=== PATIENT | female | born 1970 | race Caucasian/White ===

== ENCOUNTER → 2024-10-28 | Outpatient (CLI) | payer BC, SELFPAY ==
[2024-10-29 00:15] LABS: ALB/GLOB Ratio 1.3 RATIO (0.9-2.4); AST(SGOT) 38 U/L (<=31); Alanine Aminotransfer ALT/SGPT 49 U/L (<=34); Albumin, Serum 4.3 g/dL (3.5-5.0); Alkaline Phosphatase 72 U/L (35-104); Anion Gap 12 (5-15); BUN 14 mg/dL (4-19); BUN/Creat Ratio 18.3 RATIO (10-20); Calcium,Total 9.9 mg/dL (7.6-11.0); Carbon Dioxide 23.6 mmol/L (21.0-32.0); Chloride 103 mmol/L (98-108); Creatinine, Serum 0.75 mg/dL (0.70-1.20); EST Glomerular Filtration Rate 95 (>60); Globulin 3.3 g/dL (2.2-4.2); Glucose 108 mg/dL (70-99); Potassium 4.9 mmol/L (3.3-5.1); Protein, Total 7.5 g/dL (5.9-8.4); Sodium Level 138 mmol/L (133-145); Total Bilirubin 0.24 mg/dL (0.00-1.30)
[2024-10-29 01:16] LABS: CRP 6.04 mg/L (0.0-3.0); Iron 57 ug/dL (50-170)
[2024-10-29 01:17] LABS: Estradiol < 5.0 pg/mL; Ferritin 27 ng/mL (22-378)
[2024-10-30 14:08] LABS: PROGESTERONE 0.1 ng/mL (.)
[2024-10-30 17:07] LABS: DHEA Sulfate 50.9 ug/dL (41.2-243.7); Thyroglobulin Antibody 3.2 IU/mL (0.0-0.9); Thyroid Peroxidase AB 23 IU/mL (0-34)
== END | disposition home or self-care (01) ==
LOC: LABSPEC 12:35
PROVIDERS: Referring Provider Nurse Practitioner Family; Visit Provider Nurse Practitioner Family
DX: E28.9 Ovarian dysfunction, unspecified (principal); L65.9 Nonscarring hair loss, unspecified; R53.83 Other fatigue; F41.9 Anxiety disorder, unspecified; R63.5 Abnormal weight gain; R61 Generalized hyperhidrosis; R19.7 Diarrhea, unspecified; R35.1 Nocturia; E61.1 Iron deficiency; E55.9 Vitamin D deficiency, unspecified; E53.9 Vitamin B deficiency, unspecified
CPT/HCPCS: 80053; 82627; 82670; 82728; 83540; 84144; 84403; 84439; 84443; 84481; 86140; 86376; 86800; 82626

== ENCOUNTER 2025-07-11 12:20 | Outpatient (CLI) | payer BC, SELFPAY ==
--- OUTSIDE RECORDS SUMMARY | 2025-07-11 12:46 | XMS RPT_ITS | CCD ---
Author Organization [facility] Care Team Providers Care Herb Grower Name Role Phone SUMMER REY, MAIK Everett Attending Trevor WHEELER MD, MAIK Everett Primary Care Unavailable SUMMER REY, MAIK Everett Attending Unavailable SUMMER REY, MAIK Everett Primary Care Unavailable Benedict FAMILY WORKER, Macey Figueroa Referring Unavailprabhakar e Benedict FAMILY WORKER, Macey Figueroa Attending Unavailabl e Benedict FAMILY WORKER-C, Macey Figueroa Attending Provider Unava ilable Bneedict FAMILY WORKER-C, Macey Figueroa Referring Provider Unava ilable Problems Problem Classification Problem Date Documented Da te Episodic/Chronic Deficiency and other anemia (2 sources) Vitamin B12 deficiency anemia, unspecified; Translations: [Vitamin B12 deficiency anemia, unspecified] Onset: 06-17-2022 Episodic Nutritional deficiencies (2 sources) Vitamin D deficiency, unspecified; Translations: [Vitamin D deficiency, unspecified] Onset: 06-17-2022 Chronic Other endocrine disorders (1 source) Ovarian dysfunction, unspecified; Translations: [Ovarian dysfunction, unspecified] Onset: 11-02-2024 Chronic Results Test Name Value Interpretation Reference Range Facility DHEA Sulfateon 10-30-2024 DHEA SULFATE 50.9 ug/dL Normal 41.2-243.7 [facility] Comment on above: Order Comment: N Performed By: #### L 100.0100, L501.9520, L3300.1500, L501.6710, L509.3000, L503.6150, L801.2600, L501.01592, L506.0400, L500.4050, L3300.1750, L3300.6750, L503.6550 #### [facility] [address] [place], [place], [id number] PROGESTERONE 4317on 10-31-19 25 PROGESTERONE 0.1 ng/mL Normal . [facility] Comment on above: Order Comment: N Result Comment: Foll icular phase 0.1 - 0.9 Luteal phase 1.8 - 23.9 Ovulation phase 0.1 - 12.0 First trimester 11.0 - 44.3 Second trimester 25.4 - 83.3 Third trimester 58.7 - 214.0 Postmenopausal 0.0 - 0.1 Performed at: [address] [id number] Cont[employer] Sales Representative: Anoop Barreto PhD, Phone: [phone] Performed By: #### L 100.0100, L501.9520, L3300.1500, L501.6710, L509.3000, L503.6150, L801.2600, L501.21076, L506.0400, L500.4050, L3300.1750, L3300.6750, L503.6550 #### [facility] [address] [place], [address] Thyroid Antibodieson 025 TG AB 3.2 IU/mL High 0.0-0.9 [facility] Comment on above: Result Comment: Thyr oglobulin Antibody measured by Sacha Ty Methodology It should be noted that the presence of thyroglobulin antibodies may not be pathogenic nor diagnostic, especially at very low levels. The assay detailer school photographs has found that four percent of individuals without evidence of thyroid disease or autoimmunity will have positive TgAb levels up to 4 IU/mL. Performed at: [address] [id number] Cont[employer] Sales Representative: Anoop Barreto PhD, Phone: [phone] Performed By: #### L 100.0100, L501.9520, L3300.1500, L501.6710, L509.3000, L503.6150, L801.2600, L501.42174, L506.0400, L500.4050, L3300.1750, L3300.6750, L503.6550 #### [facility] [address] [place], [address] THYR PEROX AB 23 IU/mL Normal 0-34 [facility] Comment on above: Performed By: #### L 100.0100, L501.9520, L3300.1500, L501.6710, L509.3000, L503.6150, L801.2600, L501.43252, L506.0400, L500.4050, L3300.1750, L3300.6750, L503.6550 #### [facility] [address] [place], [place], [id number] CRPon 10-29-2024 C-REACTIVE PROT 6.04 mg/L High 0.0-3.0 [facility] Comment on above: Performed By: #### L 100.0100, L501.9520, L3300.1500, L501.6710, L509.3000, L503.6150, L801.2600, L501.56092, L506.0400, L500.4050, L3300.1750, L3300.6750, L503.6550 #### [facility] [address] [place], [address] Comprehensive Metabolic Prof ilon 10-29-2024 Albumin [Mass/Vol] 4.3 g/dL Normal 3.5-5.0 [facility] Comment on above: Performed By: #### L 100.0100, L501.9520, L3300.1500, L501.6710, L509.3000, L503.6150, L801.2600, L501.63381, L506.0400, L500.4050, L3300.1750, L3300.6750, L503.6550 #### [facility] [address] [place], [address] Albumin/Globulin [Mass ratio] 1.3 {ratio} Normal 0.9-2.4 [facility] Comment on above: Performed By: #### L 100.0100, L501.9520, L3300.1500, L501.6710, L509.3000, L503.6150, L801.2600, L501.95803, L506.0400, L500.4050, L3300.1750, L3300.6750, L503.6550 #### [facility] [address] [place], [place], [id number] ALK PHOS 72 U/L Normal 35-104 [facility] Comment on above: Performed By: #### L 100.0100, L501.9520, L3300.1500, L501.6710, L509.3000, L503.6150, L801.2600, L501.04430, L506.0400, L500.4050, L3300.1750, L3300.6750, L503.6550 #### [facility] [address] [place], [place], [phone] (848) ALT [Catalytic activity/Vol] 49 U/L High <=34 [facility] Comment on above: Performed By: #### L 100.0100, L501.9520, L3300.1500, L501.6710, L509.3000, L503.6150, L801.2600, L501.20234, L506.0400, L500.4050, L3300.1750, L3300.6750, L503.6550 #### [facility] [address] [place], [place], [phone] (813) AST [Catalytic activity/Vol] 38 U/L High <=31 [facility] Comment on above: Performed By: #### L 100.0100, L501.9520, L3300.1500, L501.6710, L509.3000, L503.6150, L801.2600, L501.61678, L506.0400, L500.4050, L3300.1750, L3300.6750, L503.6550 #### [facility] [address] [place], [place], [id number] Bilirubin [Mass/Vol] 0.24 mg/dL Normal 0.00-1.30 [facility] Comment on above: Performed By: #### L 100.0100, L501.9520, L3300.1500, L501.6710, L509.3000, L503.6150, L801.2600, L501.10956, L506.0400, L500.4050, L3300.1750, L3300.6750, L503.6550 #### [facility] [address] [place], [address] BUN/CRE 18.3 RATIO Normal 10-20 [facility] Comment on above: Performed By: #### L 100.0100, L501.9520, L3300.1500, L501.6710, L509.3000, L503.6150, L801.2600, L501.50455, L506.0400, L500.4050, L3300.1750, L3300.6750, L503.6550 #### [facility] [address] [place], [place], [id number] Calcium [Mass/Vol] 9.9 mg/dL Normal 7.6-11.0 [facility] Comment on above: Performed By: #### L 100.0100, L501.9520, L3300.1500, L501.6710, L509.3000, L503.6150, L801.2600, L501.58445, L506.0400, L500.4050, L3300.1750, L3300.6750, L503.6550 #### [facility] [address] [place], [place], [phone] Chloride [Moles/Vol] 103 mmol/L Normal 98-108 [facility] Comment on above: Performed By: #### L 100.0100, L501.9520, L3300.1500, L501.6710, L509.3000, L503.6150, L801.2600, L501.79042, L506.0400, L500.4050, L3300.1750, L3300.6750, L503.6550 #### [facility] [address] [place], [address] (050) CO2 [Moles/Vol] 23.6 mmol/L Normal 21.0-32.0 [facility] Comment on above: Performed By: #### L 100.0100, L501.9520, L3300.1500, L501.6710, L509.3000, L503.6150, L801.2600, L501.19209, L506.0400, L500.4050, L3300.1750, L3300.6750, L503.6550 #### [facility] [address] [place], [address] (807) Creatinine [Mass/Vol] 0.75 mg/dL Normal 0.70-1.20 [facility] Comment on above: Performed By: #### L 100.0100, L501.9520, L3300.1500, L501.6710, L509.3000, L503.6150, L801.2600, L501.78247, L506.0400, L500.4050, L3300.1750, L3300.6750, L503.6550 #### [facility] [address] [place], [address] (340) GAP 12 Normal 5-15 [facility] Comment on above: Performed By: #### L 100.0100, L501.9520, L3300.1500, L501.6710, L509.3000, L503.6150, L801.2600, L501.22788, L506.0400, L500.4050, L3300.1750, L3300.6750, L503.6550 #### [facility] [address] [place], [address] (687) GFR/1.73 sq M.predicted among non-blacks MDRD (S/P/Bld) [Vol rate/Area] 95 mL/min/{1.73_m2} Normal >60 [facility] Comment on above: Result Comment: mL/m in/1.73m2 CKD-EPI Creatinine Equation (2020) Performed By: #### L 100.0100, L501.9520, L3300.1500, L501.6710, L509.3000, L503.6150, L801.2600, L501.88856, L506.0400, L500.4050, L3300.1750, L3300.6750, L503.6550 #### [facility] [address] [place], [address] Globulin (S) [Mass/Vol] 3.3 g/dL Normal 2.2-4.2 [facility] Comment on above: Performed By: #### L 100.0100, L501.9520, L3300.1500, L501.6710, L509.3000, L503.6150, L801.2600, L501.18347, L506.0400, L500.4050, L3300.1750, L3300.6750, L503.6550 #### [facility] [address] [place], [address] Glucose [Mass/Vol] 108 mg/dL High 70-99 [facility] Comment on above: Performed By: #### L 100.0100, L501.9520, L3300.1500, L501.6710, L509.3000, L503.6150, L801.2600, L501.51098, L506.0400, L500.4050, L3300.1750, L3300.6750, L503.6550 #### [facility] [address] [place], [address] Potassium [Moles/Vol] 4.9 mmol/L Normal 3.3-5.1 [facility] Comment on above: Performed By: #### L 100.0100, L501.9520, L3300.1500, L501.6710, L509.3000, L503.6150, L801.2600, L501.81893, L506.0400, L500.4050, L3300.1750, L3300.6750, L503.6550 #### [facility] [address] [place], [address] Sodium [Moles/Vol] 138 mmol/L Normal 133-145 [facility] Comment on above: Performed By: #### L 100.0100, L501.9520, L3300.1500, L501.6710, L509.3000, L503.6150, L801.2600, L501.64671, L506.0400, L500.4050, L3300.1750, L3300.6750, L503.6550 #### [facility] [address] [place], [place], [phone] (338) T PROT 7.5 g/dL Normal 5.9-8.4 [facility] Comment on above: Performed By: #### L 100.0100, L501.9520, L3300.1500, L501.6710, L509.3000, L503.6150, L801.2600, L501.45813, L506.0400, L500.4050, L3300.1750, L3300.6750, L503.6550 #### [facility] [address] [place], [place], [phone] (682) Urea nitrogen [Mass/Vol] 14 mg/dL Normal 4-19 [facility] Comment on above: Performed By: #### L 100.0100, L501.9520, L3300.1500, L501.6710, L509.3000, L503.6150, L801.2600, L501.44004, L506.0400, L500.4050, L3300.1750, L3300.6750, L503.6550 #### [facility] [address] [place], [place], [phone] (318) Estradiolon 03-25-2025 ESTRADIOL < 5.0 Normal [facility] Comment on above: Result Comment: FEMA LES ADULT FEMALE: Premenopausal: 15-350 pg/mL(E2 levels vary widely through the menstrual cycle) Postmenopausal: <10 pg/mL JAROD STAGES MEAN AGE REFERENCE RANGES Stage I(>14 days and prepubertal) 7.1 years Undetectable-20 pg/mLL Stage II 10.5 years Undetectable-24 pg/mL Stage III 11.6 years Undetectable-60 pg/mL Stage IV 12.3 years 15-85 pg/mL Stage V 14.5 years 15-350 pg/mL Puberty onset (transition from Jarod stage I to Jarod stage II) occurs for girls at a median age of 10.5 (/- 2) years. There is evidence that it may occur up to 1 year earlier in obese girls and in girls. Progression through Jarod stages is variable. Jarod stage V (adult) should be reached by age 18. Performed By: #### L 100.0100, L501.9520, L3300.1500, L501.6710, L509.3000, L503.6150, L801.2600, L501.55266, L506.0400, L500.4050, L3300.1750, L3300.6750, L503.6550 #### [facility] [address] [place], [place], [id number] Ferritinon 10-29-2024 Ferritin [Mass/Vol] 27 ng/mL Normal 22-378 [facility] Comment on above: Performed By: #### L 100.0100, L501.9520, L3300.1500, L501.6710, L509.3000, L503.6150, L801.2600, L501.08935, L506.0400, L500.4050, L3300.1750, L3300.6750, L503.6550 #### [facility] [address] [place], [address] ( Free T3on 10-29-2024 Free T3 [Mass/Vol] 3.0 pg/mL Normal 2.18-3.98 [facility] Comment on above: Order Comment: N Performed By: #### L 100.0100, L501.9520, L3300.1500, L501.6710, L509.3000, L503.6150, L801.2600, L501.12126, L506.0400, L500.4050, L3300.1750, L3300.6750, L503.6550 #### [facility] [address] [place], [place], [id number] Ironon 10-29-2024 Iron [Mass/Vol] 57 ug/dL Normal 50-170 [facility] Comment on above: Performed By: #### L 100.0100, L501.9520, L3300.1500, L501.6710, L509.3000, L503.6150, L801.2600, L501.63807, L506.0400, L500.4050, L3300.1750, L3300.6750, L503.6550 #### [facility] [address], [address] T4 Free Directon 10-29-2024 T4 FREE DIRECT 1.20 ng/dL Normal 0.76-1.46 [facility] Comment on above: Order Comment: N Performed By: #### L 100.0100, L501.9520, L3300.1500, L501.6710, L509.3000, L503.6150, L801.2600, L501.69502, L506.0400, L500.4050, L3300.1750, L3300.6750, L503.6550 #### [facility] [address] [place], [address] Testosterone, Serum Totalon 10-29-2024 Testosterone [Mass/Vol] 7.33 ng/dL Normal W [facility] Comment on above: Result Comment: CENT RAL 90% REFERENCE RANGES MALE AGE <50 197.44 - 669.58 ng/dL MALE AGE > or = 50 187.72 - 684.19 ng/dL FEMALE AGE <50 8.38 - 35.01 ng/dL FEMALE AGE > or = 50 <7.00 - 35.92 ng/dL Effective as of 03/02/21 Performed By: #### L 100.0100, L501.9520, L3300.1500, L501.6710, L509.3000, L503.6150, L801.2600, L501.28791, L506.0400, L500.4050, L3300.1750, L3300.6750, L503.6550 #### [facility] [address] [place], [place], [id number] Thyroid Stim Hormone (TSH)on 10-29-2024 TSH 2.440 uIU/mL Normal 0.300-4.20 0 [facility] Comment on above: Performed By: #### L 100.0100, L501.9520, L3300.1500, L501.6710, L509.3000, L503.6150, L801.2600, L501.65550, L506.0400, L500.4050, L3300.1750, L3300.6750, L503.6550 #### [facility] [address] [place], [place], [phone] Anion gap in Serum or Plasma Ordered By: Macey Mcmullen on 10-28-2024 Anion gap [Moles/Vol] 12 mmol/L 5- [facility] BUN/creatinine ratioOrdered By: Macey Mcmullen on 10-28-2024 Urea nitrogen/Creatinine [Mass ratio] 18.3 mg/mg 10-20 [facility] Bilirubin, totalOrdered By: Macey Mcmullen on 10-28-2024 Bilirubin [Mass/Vol] 0.24 mg/dL 0.00-1.30 [facility] CBC W/Diff, Automatedon 10-06 Absolute Neut Normal 2.0-7.7 [facility] Comment on above: Result Comment: @LEF T MESSAGE FOR RETURN CALL 10-28-24 1510 ps Performed By: #### L 100.0100, L501.9520, L3300.1500, L501.6710, L509.3000, L503.6150, L801.2600, L501.20007, L506.0400, L500.4050, L3300.1750, L3300.6750, L503.6550 #### [facility] [address] [place], [place], [id number] HCT Normal 37-47 [facility] Comment on above: Result Comment: @LEF T MESSAGE FOR RETURN CALL 10-28-24 1510 ps Performed By: #### L 100.0100, L501.9520, L3300.1500, L501.6710, L509.3000, L503.6150, L801.2600, L501.93115, L506.0400, L500.4050, L3300.1750, L3300.6750, L503.6550 #### [facility] [address] [place], [address] HGB Normal 12.0-15.0 [facility] Comment on above: Result Comment: @LEF T MESSAGE FOR RETURN CALL 10-28-24 1510 ps Performed By: #### L 100.0100, L501.9520, L3300.1500, L501.6710, L509.3000, L503.6150, L801.2600, L501.42495, L506.0400, L500.4050, L3300.1750, L3300.6750, L503.6550 #### [facility] [address] [place], [address] MCH Normal 27.0-32.0 [facility] Comment on above: Result Comment: @LEF T MESSAGE FOR RETURN CALL 10-28-24 1510 ps Performed By: #### L 100.0100, L501.9520, L3300.1500, L501.6710, L509.3000, L503.6150, L801.2600, L501.59214, L506.0400, L500.4050, L3300.1750, L3300.6750, L503.6550 #### [facility] [address] [place], [address] MCHC Normal 32-36 [facility] Comment on above: Result Comment: @LEF T MESSAGE FOR RETURN CALL 10-28-24 1510 ps Performed By: #### L 100.0100, L501.9520, L3300.1500, L501.6710, L509.3000, L503.6150, L801.2600, L501.65706, L506.0400, L500.4050, L3300.1750, L3300.6750, L503.6550 #### [facility] [address] [place], [address] MCV Normal 81-99 [facility] Comment on above: Result Comment: @LEF T MESSAGE FOR RETURN CALL 10-28-24 1510 ps Performed By: #### L 100.0100, L501.9520, L3300.1500, L501.6710, L509.3000, L503.6150, L801.2600, L501.64281, L506.0400, L500.4050, L3300.1750, L3300.6750, L503.6550 #### [facility] [address] [place], [address] NEUT% Normal 47-70 [facility] Comment on above: Result Comment: @LEF T MESSAGE FOR RETURN CALL 10-28-24 1510 ps Performed By: #### L 100.0100, L501.9520, L3300.1500, L501.6710, L509.3000, L503.6150, L801.2600, L501.84690, L506.0400, L500.4050, L3300.1750, L3300.6750, L503.6550 #### [facility] [address] [place], [address] PLT Normal 150-450 [facility] Comment on above: Result Comment: @LEF T MESSAGE FOR RETURN CALL 10-28-24 1510 ps Performed By: #### L 100.0100, L501.9520, L3300.1500, L501.6710, L509.3000, L503.6150, L801.2600, L501.15171, L506.0400, L500.4050, L3300.1750, L3300.6750, L503.6550 #### [facility] [address] [place], [place], [phone] (834) RBC Normal 4.2-5.4 [facility] Comment on above: Result Comment: @LEF T MESSAGE FOR RETURN CALL 10-28-24 1510 ps Performed By: #### L 100.0100, L501.9520, L3300.1500, L501.6710, L509.3000, L503.6150, L801.2600, L501.46142, L506.0400, L500.4050, L3300.1750, L3300.6750, L503.6550 #### [facility] [address] [place], [address] RDW CV Normal 11.6-14.6 [facility] Comment on above: Result Comment: @LEF T MESSAGE FOR RETURN CALL 10-28-24 1510 ps Performed By: #### L 100.0100, L501.9520, L3300.1500, L501.6710, L509.3000, L503.6150, L801.2600, L501.02176, L506.0400, L500.4050, L3300.1750, L3300.6750, L503.6550 #### [facility] [address] [place], [place], [phone] (792) RDW SD Normal 35.1-43.9 [facility] Comment on above: Result Comment: @LEF T MESSAGE FOR RETURN CALL 10-28-24 1510 ps Performed By: #### L 100.0100, L501.9520, L3300.1500, L501.6710, L509.3000, L503.6150, L801.2600, L501.08116, L506.0400, L500.4050, L3300.1750, L3300.6750, L503.6550 #### [facility] [address] [place], [address] WBC Normal 4.4-11.0 [facility] Comment on above: Result Comment: @[facility] T MESSAGE FOR RETURN CALL 10-28-24 1510 ps Performed By: #### L 100.0100, L501.9520, L3300.1500, L501.6710, L509.3000, L503.6150, L801.2600, L501.83251, L506.0400, L500.4050, L3300.1750, L3300.6750, L503.6550 #### [facility] [address] [place], [place], [id number] CRP [Mass/Vol]Ordered By: Johnny Mcmullen on 10-28-2024 C-Reactive Protein Extended Range 6.04 mg/L High 0.0-3.0 [facility] Carbon dioxide, total [Moles /volume] in Central venous bloodOrdered By: Macey Mcmullen on 10-28-2024 CO2 [Moles/Vol] 23.6 mmol/L 21.0-32.0 [facility] Chloride assayOrdered By: Johnny Mcmullen on 10-28-2024 Chloride [Moles/Vol] 103 mmol/L 98-108 [facility] Dehydroepiandrosterone sulfa te (DHEA-S) measurementOrdered By: Macey Mcmullen on 10-28-2024 Dehydroepiandrosterone Sulfate 50.9 ug/dL 41.2-243.7 [facility] E2 post dose follitropin [Ma ss/Vol]Ordered By: Macey Mcmullen on 10-28-2024 Estradiol (E2) Level < 5.0 pg/mL [facility] Comment on above: FEMALES ADULT FEMALE : Premenopausal: 15-350 pg/mL(E2 levels vary widely through the menstrual cycle) Postmenopausal: <10 pg/mL JAROD STAGES MEAN AGE REFERENCE RANGES Stage I(>14 days and prepubertal) 7.1 years Undetectable-20 pg/mLL Stage II 10.5 years Undetectable-24 pg/mL Stage III 11.6 years Undetectable-60 pg/mL Stage IV 12.3 years 15-85 pg/mL Stage V 14.5 years 15-350 pg/mL Puberty onset (transition from Jarod stage I to Jarod stage II) occurs for girls at a median age of 10.5 (/- 2) years. There is evidence that it may occur up to 1 year earlier in obese girls and in girls.Progression through Jarod stages is variable. Jarod stage V (adult) should be reached by age 18. Free S7Aiazmeo By: Macey clement on 10-28-2024 Free Triiodothyronine (T3) pg/dL 3.0 pg/mL 2.18-3.98 [facility] GFR/1.73 sq M.predicted maria m g non-blacks MDRD (S/P/Bld) [Vol rate/Area]Ordered By: Macey Mcmullen on 10-28-2024 Estimated GFR (MDRD) Non-Af Amer 95 >60 [facility] Comment on above: mL/min/1.73m2 CKD-EP I Creatinine Equation (2020) Iron (Unsp spec) [Mass/Mass] Ordered By: Macey Mcmullen on 10-28-2024 Iron [Mass/Vol] 57 ug/dL 50-170 [facility] Laboratory - Chemistry and C hemistry - challengeOrdered By: Macey Mcmullen on 10-28-2024 AST [Catalytic activity/Vol] 38 U/L High <32 [facility] Potassium (Unsp spec) [Mass/ Vol]Ordered By: Macey Mcmullen on 10-28-2024 Potassium [Moles/Vol] 4.9 mmol/L 3.3-5.1 [facility] Quantitative serum progester one measurement by electrochemiluminescence immunoassay (Ordered By: Macey Mcmullen on 10-28-2024 Progesterone Level 0.1 ng/mL . [facility] Comment on above: Follicular phase 0.1 - 0.9 Luteal phase 1.8 - 23.9 Ovulation phase 0.1 - 12.0 First trimester 11.0 - 44.3 Second trimester 25.4 - 83.3 Third trimester 58.7 - 214.0 Postmenopausal 0.0 - 0.1Performed at: [facility] [address] [id number] Director: Anoop Barreto PhD, Phone: [phone] Serum creatinine measurement (mass/volume)Ordered By: Macey Mcmullen on 10-28-2024 Creatinine [Mass/Vol] 0.75 mg/dL 0.70-1.20 [facility] Serum globulin measurementOr dered By: Macey Mcmullen on 10-28-2024 Globulin (S) [Mass/Vol] 3.3 g/dL 2.2-4.2 [facility] Serum glucose measurement (m ass/volume)Ordered By: Macey Mcmullen on 10-28-2024 Glucose [Mass/Vol] 108 mg/dL High 70-99 [facility] Serum or plasma alanine bingham otransferase (ALT) measurementOrdered By: Macey Mcmullen on 10-28-2024 ALT [Catalytic activity/Vol] 49 U/L High <35 [facility] Serum or plasma albumin erika urement (mass/volume)Ordered By: Macey Mcmullen on 10-28-2024 Albumin [Mass/Vol] 4.3 g/dL 3.5-5.0 [facility] Serum or plasma albumin/glob ulin mass ratioOrdered By: Macey Mcmullen on 10-28-2024 Albumin/Globulin [Mass ratio] 1.3 {ratio} 0.9-2.4 [facility] Serum or plasma alkaline manjeet sphatase measurementOrdered By: Macey Mcmullen on 10-28-2024 ALP [Catalytic activity/Vol] 72 U/L 35-104 [facility] Serum or plasma calcium erika urement (mass/volume)Ordered By: Macey Mcmullen on 10-28-2024 Calcium [Mass/Vol] 9.9 mg/dL 7.6-11.0 [facility] Serum or plasma ferritin demond surement (mass/volume)Ordered By: Macey Mcmullen on 10-28-2024 Ferritin [Mass/Vol] 27 ng/mL 22-378 [facility] Serum or plasma urea nitroge n measurement (mass/volume)Ordered By: Macey Mcmullen on 10-28-2024 Urea nitrogen [Mass/Vol] 14 mg/dL 4-19 [facility] Sodium levelOrdered By: Pancho Mcmullen on 10-28-2024 Sodium [Moles/Vol] 138 mmol/L 133-145 [facility] T4 freeOrdered By: Macey clement on 10-28-2024 Free T4 [Mass/Vol] 1.20 ng/dL 0.76-1.46 [facility] TPO Ab QnOrdered By: Macey Mcmullen on 10-28-2024 Thyroid Peroxidase Antibodies 23 IU/mL 0-34 [facility] TSH DL <= 0.005 mIU/L QnOrde red By: Macey Mcmullen on 10-28-2024 Thyroid Stimulating Hormone (TSH) 2.440 uIU/mL 0.300-4.20 0 [facility] Testosterone, totalOrdered B y: Macey Mcmullen on 10-28-2024 Testosterone [Mass/Vol] 7.33 ng/dL W [facility] Comment on above: CENTRAL 90% REFERENC E RANGES MALE AGE <50 197.44 - 669.58 ng/dL MALE AGE > or = 50 187.72 - 684.19 ng/dL FEMALE AGE <50 8.38 - 35.01 ng/dL FEMALE AGE > or = 50 <7.00 - 35.92 ng/dL Effective as of 03/02/21 Thyroglobulin Ab serumOrdere d By: Macey Mcmullen on 10-28-2024 Thyroglobulin Antibody 3.2 IU/mL High 0.0-0.9 [facility] Comment on above: Thyroglobulin Antibo dy measured by [employer]imet[employer] CoulterMethodologyIt should be noted that the presence of thyroglobulinantibodies may not be pathogenic nor diagnostic, especiallyat very low levels. The assay detailer school photographs has found thatfour percent of individuals without evidence of thyroiddisease or autoimmunity will have positive TgAb levels upto 4 IU/mL.Performed at: [address] [id number] Director: Anoop Barreto PhD, Phone: [phone] Total proteinOrdered By: Luly Mcmullen on 10-28-2024 Protein [Mass/Vol] 7.5 g/dL 5.9-8.4 [facility] MAMMOGRAM SCREENING BILAT ERAL W/TOMOon 08-16-2022 MA MAMMOGRAM SCREENING BILATERAL W/LU ORIGINAL FROM: [facility] [address] [place] [address] PROCEDURE FOR: DUNG TONY [address] [place] [address] Home: PID#: [id number] Exam#: [id number] : 1970 Age: 52 TO: MAIK WHEELER MD [address] [address] EXAMINATION: SCREENING DIGITAL BILATERAL MAMMOGRAM WITH TOMOSYNTHESIS, 08/16/2022 3:14 pm TECHNIQUE: Screening mammography of the bilateral breasts was performed with tomosynthesis. 2D standard and 3D tomosynthesis combination imaging performed through both breasts in the MLO and CC projection. Computer aided detection was utilized in the interpretation of this exam. COMPARISON: 11/02/2018, 08/23/2017 HISTORY: Breast cancer screening. FINDINGS: BREAST DENSITY: Heterogeneously dense There are benign appearing calcifications in both breasts. There are no significant masses or calcifications. IMPRESSION: No mammographic evidence of malignancy. Continued screening with annual mammograms is recommended. Tyrer Cuzick calculations report this patient's 10 year risk and lifetime risk for developing breast cancer at 6.4% and 24.6%, respectively. Based on this assessment tool, this patient's calculated lifetime risk is at or above 20% and they may be a candidate for breast MRI screening per the [place] [employer]. Consider annual MRI screening in addition to annual mammographic screening. BIRADS: MAMMOGRAM BI-RADS: 2: Benign finding RECALL: 1 year screening RECALL TYPE: mammo LETTER SENT: Normal BI-RADS 1 and 2 Interpreted by: Pavan Avila MD Preliminary Report By: Pavan Avila MD Electronically signed By Pavan Avila MD Dictated Date: 08/20/2022 12:55:38 PM Prelim Date: 08/20/2022 1:27:58 PM Sign Date: 08/20/2022 1:27:58 PM Ordering Provider: MAIK WHEELER Agent Contract Clerk: MACIEL CHIU(Sammi)(M) letter sent: Normal BI-RADS 1 and 2 Mammogram BI-RADS: 2 Benign Normal [facility] ([place]) .Auto Diffon 06-18-2022 Basophil, Absolute 0.1 10 3/mcL Normal 0.0-0.3 [facility] ([place]) Comment on above: Performed By: #### T SH, GFR, B12, CMP, VIDH, LIPID #### [address] [address] Basophils/100 WBC (Bld) 1.1 % Normal 0.0-2.5 A [facility] ([place]) Comment on above: Performed By: #### T SH, GFR, B12, CMP, VIDH, LIPID #### [address] [address] Eosinophil, Absolute 0.1 10 3/mcL Normal 0.0-0.7 [facility] ([place]) Comment on above: Performed By: #### T SH, GFR, B12, CMP, VIDH, LIPID #### [address] [address] Eosinophils/100 WBC (Bld) 1.3 % Normal 0.0-6.0 [facility] ([place]) Comment on above: Performed By: #### T SH, GFR, B12, CMP, VIDH, LIPID #### [address] [address] Lymphocyte, Absolute 1.2 10 3/mcL Normal 0.9-4.3 [facility] ([place]) Comment on above: Performed By: #### T SH, GFR, B12, CMP, VIDH, LIPID #### [address] [address] Lymphocytes/100 WBC (Bld) 19.6 % Low 20.0-40.0 [facility] ([place]) Comment on above: Performed By: #### T SH, GFR, B12, CMP, VIDH, LIPID #### [address] [address] Monocyte, Absolute 0.3 10 3/mcL Normal 0.1-1.4 [facility] ([place]) Comment on above: Performed By: #### T SH, GFR, B12, CMP, VIDH, LIPID #### [address] [address] Monocytes/100 WBC (Bld) 5.6 % Normal 2.0-13.0 A [facility] ([place]) Comment on above: Performed By: #### T SH, GFR, B12, CMP, VIDH, LIPID #### [address] [address] Neutrophils/100 WBC (Bld) 72.4 % Normal 50.0-75.0 [facility] ([place]) Comment on above: Performed By: #### T SH, GFR, B12, CMP, VIDH, LIPID #### [address] [address] .GFRon 06-18-2022 GFR Non- >60 Normal [facility] ([place]) Comment on above: Result Comment: GFR Population mean for , Non- Americans Ages 20-29 = 116 mL/min/1.73 sq.m. Ages 30-39 = 107 mL/min/1.73 sq.m. Ages 40-49 = 99 mL/min/1.73 sq.m. Ages 50-59 = 93 mL/min/1.73 sq.m. Ages 60-69 = 85 mL/min/1.73 sq.m. Ages 70+ = 75 mL/min/1.73 sq.m. Chronic Kidney Disease: Less than 60 mL/min/1.73 square meters End Stage Renal Disease: Less than 15 mL/min/1.73 square meters Performed By: #### T SH, GFR, B12, CMP, VIDH, LIPID #### [address] [address] GFR >60 Normal [facility] ([place]) Comment on above: Result Comment: GFR Population mean for , Non- Americans Ages 20-29 = 116 mL/min/1.73 sq.m. Ages 30-39 = 107 mL/min/1.73 sq.m. Ages 40-49 = 99 mL/min/1.73 sq.m. Ages 50-59 = 93 mL/min/1.73 sq.m. Ages 60-69 = 85 mL/min/1.73 sq.m. Ages 70+ = 75 mL/min/1.73 sq.m. Chronic Kidney Disease: Less than 60 mL/min/1.73 square meters End Stage Renal Disease: Less than 15 mL/min/1.73 square meters Performed By: #### T SH, GFR, B12, CMP, VIDH, LIPID #### [address] [address] .NEUABSon 06-18-2022 Neutrophil, Absolute 4.4 10 3/mcL Normal 2.3-8.1 [facility] ([place]) Comment on above: Performed By: #### T SH, GFR, B12, CMP, VIDH, LIPID #### [place] [address] B12on 06-18-2022 Cobalamin (Vitamin B12) [Mass/Vol] 388 pg/mL Normal 211-911 [facility] ([place]) Comment on above: Performed By: #### T SH, GFR, B12, CMP, VIDH, LIPID #### [address] [address] CBCon 06-18-2022 Erythrocyte distribution width (RBC) [Ratio] 15.7 % High 11.5-15.5 [facility] ([place]) Comment on above: Performed By: #### T SH, GFR, B12, CMP, VIDH, LIPID #### [place] [address] Hematocrit (Bld) [Volume fraction] 39.2 % Normal 34.0-46.0 [facility] ([place]) Comment on above: Performed By: #### T SH, GFR, B12, CMP, VIDH, LIPID #### [place] [address] Hgb 12.5 G/dL Normal 12.0-16.0 [facility] ([place]) Comment on above: Performed By: #### T SH, GFR, B12, CMP, VIDH, LIPID #### [place] [id number] MCH (RBC) [Entitic mass] 25.9 pg Low 27.0-33.0 [facility] ([place]) Comment on above: Performed By: #### T SH, GFR, B12, CMP, VIDH, LIPID #### [place] [address] MCHC 32.0 G/dL Normal 32.0-36.0 [facility] ([place]) Comment on above: Performed By: #### T SH, GFR, B12, CMP, VIDH, LIPID #### [place] [address] MCV (RBC) [Entitic vol] 81.0 fL Normal 80.0-99.0 A [facility] ([place]) Comment on above: Performed By: #### T SH, GFR, B12, CMP, VIDH, LIPID #### [place] [address] Platelet 309 10 3/mcL Normal 150-450 [facility] ([place]) Comment on above: Performed By: #### T SH, GFR, B12, CMP, VIDH, LIPID #### [place] [address] Platelet mean volume (Bld) [Entitic vol] 8.2 fL Normal 6.6-10.5 [facility] ([place]) Comment on above: Performed By: #### T SH, GFR, B12, CMP, VIDH, LIPID #### [place] [address] RBC 4.84 10 6/mcL Normal 4.10-5.30 [facility] ([place]) Comment on above: Performed By: #### T SH, GFR, B12, CMP, VIDH, LIPID #### [place] [address] WBC 6.1 10 3/mcL Normal 4.5-10.8 [facility] ([place]) Comment on above: Performed By: #### T SH, GFR, B12, CMP, VIDH, LIPID #### [place] [address] CMPon 06-18-2022 Albumin Level 3.7 G/dL Normal 3.2-4.8 [facility] ([place]) Comment on above: Performed By: #### T SH, GFR, B12, CMP, VIDH, LIPID #### [place] [address] Albumin/Globulin [Mass ratio] 1.0 {ratio} Normal 0.9-1.6 [facility] ([place]) Comment on above: Performed By: #### T SH, GFR, B12, CMP, VIDH, LIPID #### [place] [id number] ALP [Catalytic activity/Vol] 65 U/L Normal 38-126 [facility] ([place]) Comment on above: Performed By: #### T SH, GFR, B12, CMP, VIDH, LIPID #### [place] [id number] ALT [Catalytic activity/Vol] 39 U/L Normal 10-49 [facility] ([place]) Comment on above: Performed By: #### T SH, GFR, B12, CMP, VIDH, LIPID #### [place] [id number] AST [Catalytic activity/Vol] 33 U/L Normal 8-34 [facility] ([place]) Comment on above: Performed By: #### T SH, GFR, B12, CMP, VIDH, LIPID #### [place] [id number] Bili Total 0.60 mg/dL Normal 0.20-1.20 [facility] ([place]) Comment on above: Result Comment: Use of this assay is not recommended for patients undergoing treatment with eltrombopag due to the potential for falsely elevated results. Performed By: #### T SH, GFR, B12, CMP, VIDH, LIPID #### [place] [id number] BUN/Creatinine Ratio 14.7 ratio Normal 10.0-22.0 [facility] ([place]) Comment on above: Performed By: #### T SH, GFR, B12, CMP, VIDH, LIPID #### [place] [id number] Calcium [Mass/Vol] 9.2 mg/dL Normal 8.7-10.4 Count includes the [facility] ([place]) Comment on above: Performed By: #### T SH, GFR, B12, CMP, VIDH, LIPID #### [address] [address] Chloride [Moles/Vol] 105 mmol/L Normal 98-110 [facility] ([place]) Comment on above: Performed By: #### T SH, GFR, B12, CMP, VIDH, LIPID #### [address] [address] CO2 [Moles/Vol] 24 mmol/L Normal 22-32 [facility] ([place]) Comment on above: Performed By: #### T SH, GFR, B12, CMP, VIDH, LIPID #### [address] [address] Creatinine [Mass/Vol] 0.68 mg/dL Normal 0.50-1.20 [facility] ([place]) Comment on above: Performed By: #### T SH, GFR, B12, CMP, VIDH, LIPID #### [address] [address] Electrolyte Balance 10.0 mEq/L Normal 4.0-15.0 [facility] ([place]) Comment on above: Performed By: #### T SH, GFR, B12, CMP, VIDH, LIPID #### [address] [address] Globulin 3.6 G/dL Normal 1.5-3.8 [facility] ([place]) Comment on above: Performed By: #### T SH, GFR, B12, CMP, VIDH, LIPID #### [address] [address] Glucose [Mass/Vol] 87 mg/dL Normal 70-110 Count includes the [facility] ([place]) Comment on above: Performed By: #### T SH, GFR, B12, CMP, VIDH, LIPID #### [address] [address] Potassium [Moles/Vol] 4.0 mmol/L Normal 3.5-5.0 [facility] ([place]) Comment on above: Performed By: #### T SH, GFR, B12, CMP, VIDH, LIPID #### [address] [address] Sodium [Moles/Vol] 139 mmol/L Normal 136-145 Count includes the [facility] ([place]) Comment on above: Performed By: #### T SH, GFR, B12, CMP, VIDH, LIPID #### [address] [address] Total Protein 7.3 G/dL Normal 5.7-8.2 [facility] ([place]) Comment on above: Result Comment: No te - New Reference Range in effect 20 Performed By: #### T SH, GFR, B12, CMP, VIDH, LIPID #### [address] [address] Urea nitrogen [Mass/Vol] 10.0 mg/dL Normal 8.0-22.0 [facility] ([place]) Comment on above: Performed By: #### T SH, GFR, B12, CMP, VIDH, LIPID #### [address] [address] LIPIDon 06-18-2022 Cholesterol [Mass/Vol] 208 mg/dL High 50-199 [facility] ([place]) Comment on above: Result Comment: Chol esterol Reference Interval: Less than 200 Desirable 200-239 Borderline high risk 240 and above High risk Performed By: #### T SH, GFR, B12, CMP, VIDH, LIPID #### [address] [address] Cholesterol in HDL [Mass/Vol] 49 mg/dL Normal 40-59 [facility] ([place]) Comment on above: Performed By: #### T SH, GFR, B12, CMP, VIDH, LIPID #### [address] [address] Cholesterol in LDL [Mass/Vol] 137 mg/dL High 0-129 [facility] ([place]) Comment on above: Performed By: #### T SH, GFR, B12, CMP, VIDH, LIPID #### [address] [address] Triglyceride [Mass/Vol] 110 mg/dL Normal 3-149 A [facility] ([place]) Comment on above: Performed By: #### T SH, GFR, B12, CMP, VIDH, LIPID #### [address] [address] TSHon 06-18-2022 TSH 2.607 mIU/mL Normal 0.550-4.78 0 [facility] ([place]) Comment on above: Result Comment: No te - New Reference Range in effect 20 Performed By: #### T SH, GFR, B12, CMP, VIDH, LIPID #### [address] [address] VIDHon 06-18-2022 Vit. D 25-Hydroxy 18.8 ng/mL Normal [facility] ([place]) Comment on above: Result Comment: Inte rpretive Values Based on Total 25(OH)D: Severe Deficiency <20 ng/mL Mild to Moderate Deficiency 20-30 ng/mL Optimum Levels 30-100 ng/mL Toxicity Possible >100 ng/mL Performed By: #### T SH, GFR, B12, CMP, VIDH, LIPID #### [address] [address] Encounters Encounter Date Encounter Type Care Provider Facility Start: 10-28-2024 End: 10-28-2024 ambulatory Macey Mcmullen FAMILY WORKER-C [facility] Work Phone: Start: 10-28-2024 End: 10-28-2024 Patient encounter procedure Macey Mcmullen FAMILY WORKER-C -Laboratory, Specimen Work Phone: Start: 10-28-2024 End: 10-28-2024 ambulatory Macey Mcmullen NP Facility:[facility] Start: 08-16-2022 End: 08-17-2022 ambulatory MAIK WHEELER MD Facility:A Start: 06-17-2022 End: 06-22-2022 ambulatory MAIK WHEEELR MD Facility:A Start: 06-17-2022 End: 06-22-2022 Encounter for general adult medical examination with abnormal findings MAIK WHEELER MD Facility:A Payers Date Payer Category Payer Self-pay 2024 Unknown [id number] 2022 Private Health Insurance [id number] 1970 Unknown [id number] 1970 Unknown [id number] Unknown [id number] [id number] Social History Date Type Detail Facility Tobacco smoking stat [facility] Unknown if ever smoked [facility] Work Phone: Start: 11-02-2024 Sex Female (finding) [facility] Start: 1970 Sex Assigned At Female W [facility] Evaluation note Note Date & Type Note Facility Evaluation note No assessment information availa ble [facility] Work Phone: Reason for referral (narrative) Note Date & Type Note Facility Reason for referral (narrative) No reason for referral information available [facility] Work Phone: Summary Purpose Family History No Family History Records FoundNo Family History Records Found Advance Directives No Advanced Directives Records FoundNo Advanced Directives Records Found Additional Source Comments INFORMATION SOURCE (unrecogn ized section and content) DATE CREATED AUTHOR 08/23/2022 [facility] ([place]) DATE CREATED AUTHOR AUTHOR'S ORGANIZ ATION 11/03/2024 [facility] Care Teams (unrecognized sec tion and content) Team Status: Inactive Member Role Status Dates Macey Mcmullen NP, FAMILY WORKERRatnaC Attending Provider Active Start: October 28, 2024 End: October 28, 2024 Macey Mcmullen NP, NP-C Referring Provider Active Start: October 28, 2024 End: October 28, 2024 Goals (unrecognized section and content) Goals may be documented in a n alternate section FOR RECORDS PERTAINING TO PATIENTS WHO ARE OR HAVE BEEN ENROLLED IN A CHEMICAL DEPENDENCY/SUBSTANCEABUSE PROGRAM, SOME INFORMATION MAY BE OMITTED. This clinical summary was aggregated from multiple sources. Caution should be exercised in using it in the provision of clinical care. This summary normalizes information from multiple sources, and as a consequence, information in this document may materially change the coding, format and clinical context of patient data. In addition, data may be omitted in some cases. CLINICAL DECISIONS SHOULD BE BASED ON THE PRIMARY CLINICAL RECORDS. [facility]. provides no warranty or guarantee of the accuracy or completeness of information in this document.
[2025-07-13 07:07] LABS: PROGESTERONE 6.1 ng/mL (.)
== END 2025-07-11 23:59 | disposition home or self-care (01) ==
PROVIDERS: Referring Provider Nurse Practitioner Family; Visit Provider Nurse Practitioner Family
DX: E28.9 Ovarian dysfunction, unspecified (principal); L65.9 Nonscarring hair loss, unspecified; K52.9 Noninfective gastroenteritis and colitis, unspecified; F41.9 Anxiety disorder, unspecified; E61.1 Iron deficiency; E55.9 Vitamin D deficiency, unspecified; E53.9 Vitamin B deficiency, unspecified; R35.1 Nocturia; R51.9 Headache, unspecified; R53.83 Other fatigue; R63.5 Abnormal weight gain; R61 Generalized hyperhidrosis
CPT/HCPCS: 82627; 82670; 84144; 84403; 82626